=== PATIENT | male | born 1950 | race Caucasian/White ===

== ENCOUNTER → 2024-04-15 | Outpatient (BNVA) | payer MEDICARE, MEDICAID, SELFPAY | END | disposition home or self-care (01) | PROVIDERS: PCP Physician Assistant; Referring Provider Physician Assistant; Visit Provider Urology | DX: N40.1 Benign prostatic hyperplasia with lower urinary tract symptoms (principal); N13.8 Other obstructive and reflux uropathy; R33.8 Other retention of urine; R97.20 Elevated prostate specific antigen [PSA]; I10 Essential (primary) hypertension; N40.2 Nodular prostate without lower urinary tract symptoms; Z87.891 Personal history of nicotine dependence | CPT/HCPCS: 99212; G0463 ==

== ENCOUNTER → 2024-04-19 | Outpatient (BNVA) | payer MEDICARE, MEDICAID, SELFPAY | END | disposition home or self-care (01) | PROVIDERS: PCP Physician Assistant; Referring Provider Physician Assistant; Visit Provider Urology | DX: N40.1 Benign prostatic hyperplasia with lower urinary tract symptoms (principal); N13.8 Other obstructive and reflux uropathy; R97.20 Elevated prostate specific antigen [PSA]; I10 Essential (primary) hypertension; Z46.6 Encounter for fitting and adjustment of urinary device; Z87.891 Personal history of nicotine dependence | CPT/HCPCS: 99212; G0463 ==

== ENCOUNTER 2024-04-30 09:35 | Emergency (ER) | payer MEDICARE, MEDICAID, SELFPAY ==
[2024-04-30 10:38] VITALS: BP 161/92; PULSE 63; RESP 16; TEMP 37.1; O2SAT 98; BMI 19.4
--- NOTE | 2024-04-30 11:02 | EDNOTE_ITS ---
ED Male Genitalurinary RME/HPI General Chief complaint: Urogenital-Male Stated complaint: FREQUENT URINATION Time Seen by Provider: 04/30/24 10:04 Arrival date/time: 04/30/24 09:35 Limitations: no limitations RME / HPI RME / HPI Narrative: 73 year old male with history of hypertension, hypothyroidism, BPH presents to the ED for frequent urination beginning 5 days ago. Today he is requesting a guerrero catheter. Mentioned patient does have an upcoming appointment with urology. While in the ED has no other complaints. Denies fevers, chills, sweats, abdominal pain, n/v, dysuria, or hematuria. Related Data Home Medications ?Medication ?Instructions ?Recorded ?Confirmed levofloxacin 500 mg tablet 500 mg PO QDAY 04/15/24 04/19/24 losartan 100 mg tablet 100 mg PO QDAY 04/15/24 04/19/24 Previous Rx's ?Medication ?Instructions ?Recorded tamsulosin 0.4 mg capsule (Flomax) 0.4 mg PO QDAY #30 caps 03/25/24 Allergies Allergy/AdvReac Type Severity Reaction Status Date / Time No Known Allergies Allergy Verified 04/30/24 09:37 Review of Systems Review of Systems Systems Reviewed: All systems reviewed, normal except as documented Past Medical History Past Medical History CARDIAC: Negative Congestive Heart Failure RESPIRATORY: Negative Chronic Obstructive Pulmonary Disease (COPD) GENITOURINARY: Negative Renal Disease ENDOCRINE: Negative Diabetes Mellitus Type 1 or Diabetes Mellitus Type 2 Social History SMOKING STATUS: Never smoker ED Exam General Limitations: Present no limitations General appearance: Present alert and in no apparent distress Head Head exam: Present atraumatic, normocephalic and normal inspection Eye Eye exam: Present normal appearance, PERRL and EOMI ENT ENT exam: Present normal exam, normal oropharynx and mucous membranes moist Neck Neck exam: Present normal inspection, full ROM and trachea midline Chest Chest inspection: Present normal inspection and symmetric chest wall rise Respiratory Respiratory exam: Present normal lung sounds bilaterally Cardiovascular Cardiovascular exam: Present regular rate, normal rhythm and normal heart sounds Abdominal Exam Abdominal exam: Present soft and normal bowel sounds Extremities Exam Extremities exam: Present normal inspection and full ROM Back Exam Back exam: Present normal inspection and full ROM Neurological Exam Neurological exam: Present alert, oriented X3 and CN II-XII intact Psychiatric Psychiatric exam: Present normal affect and normal mood Skin Skin exam: Present warm, dry, intact and normal color Course Quality Measures none Orders Category Date Time Status Guerrero to Leg Bag Routine Care 04/30/24 11:31 Ordered UA, C/S IF [Urinalysis, C/S if Indicated] Stat Lab 04/30/24 11:30 Completed Reevaluation(s) Reevaluation #1: Patient remains clinically stable throughout the emergency department visit. We reviewed all the results, analysis, and treatment plans. Patient is amenable to discharge. Strict return precautions were outlined. Patient was discharged in stable condition. Time: 12:45 Vital Signs Vital signs: Vital Signs Temperature 98.7 F 04/30/24 10:38 Pulse Rate 63 04/30/24 10:38 Respiratory Rate 16 04/30/24 10:38 Blood Pressure 161/92 H 04/30/24 10:38 Pulse Oximetry (%) 98 04/30/24 10:38 Oxygen Delivery Method Room Air 04/30/24 10:38 Pulse ox is 98% on room air which is adequate. Procedures -ED Catheter Insertion (Urinary) Prophylactic Antibiotics Given: No Estimated amount of urine (mL): 150 Preparation: Povidone-Iodine Type of Catheter Inserted: Guerrero Catheter [place] Size: 16 Catheter balloon size (mL): 10 Topical Anesthesia Used: No Results: successfully catheterized-immediate flow Patient Tolerated Procedure: well and no complications Complications: none Urogenital - Male MDM Narrative MDM Narrative:: Jenelle Alarcon am scribing for and in the presence of Dr. Villagomez. Patient data External records reviewed:: [facility] previous records (I reviewed outpatient uro visit from 04/19/2024) Clinical information provided by:: patient Social determinants that could affect healthcare access:: none Patient has the following chronic illnesses:: hypertension, hypothyroidism, BPH How is presenting disease/condition affected by chronic disease/condition?: exacerbated by Evaluation data The following diagnostics were reviewed and interpreted by me:: lab results Lab and/or radiology exams considered but not ordered:: None Interpretation Summary: UA is unremarkable. Medications / Prescriptions Medications or Prescriptions considered but not ordered:: None Medication administrations:: None Consultations Consultation(s) initiated? (list below): No Diagnosis Urogenital Male Differential Diagnosis: urinary tract infection, prostatitis, acute retention of urine and other (BPH) Most likely diagnosis given after review of the tests above:: BPH Admission Indicated Admission indicated?: not indicated Admission Request Was there a request for admission?: No Disposition Plan Disposition Plan: Discharge Discharge Attestation Discharge Attestation: The patient and all family members were given an opportunity to ask questions a nd understood the discharge instructions. Discharge instructions specifically effects, indications for sooner follow up or return to the emergency department, and the expected course of current diagnosis. Patient condition: Stable Discharge Plan Plan Patient Disposition: HOME (Self Care) Patient condition on transfer: Stable Prescriptions/Referrals Prescriptions/Med Rec: No Action losartan 100 mg tablet 100 mg PO QDAY levofloxacin 500 mg tablet 500 mg PO QDAY tamsulosin [Flomax] 0.4 mg capsule 0.4 mg PO QDAY Qty: 30 0RF Referrals: Cole Light [Primary Care Provider] - In 1 week Problem List Clinical Impression: Benign prostatic hyperplasia (BPH) with straining on urination Patient/Caregiver Discharge Instructions Education Materials: ED BPH (Enlarged Prostate) Print Language: Gu[place]an Stand Alone Forms: [employer] Award Info., Patient Portal Info Letter
[2024-04-30 11:57] VITALS: BP 166/77; PULSE 57; RESP 16; TEMP 36.7; O2SAT 96
[2024-04-30 12:13] LABS: Collection Type, Urine Catheter; Squamous Epithelial Cell,Urine 0 /hpf (0-5)
[2024-04-30 12:19] LABS: Bilirubin,Urine Negative (Negative); Blood,Urine Negative (Negative); Clarity,Urine Clear (Clear/Hazy); Color,Urine Lt-Yellow (Lt Yel-Yel); Culture Indicated,Urine Not Indicated; Glucose, Urine Negative (Negative); Ketones,Urine Negative (Negative); Leukocyte Esterase,Urine Negative (Negative); Nitrite,Urine Negative (Negative); PH,Urine 7.5 (5.0-7.0); Protein,Urine Negative (Neg - Trace); RBC,Urine < 1 /hpf (0-3); Specific Gravity,Urine 1.013 (1.001-1.035); Urobilinogen,Urine Negative mg/dL (0.0-1.0); WBC,Urine < 1 /hpf (0-5)
== END 2024-04-30 13:34 | disposition home or self-care (01) ==
PROVIDERS: Emergency Provider Emergency Medicine; PCP Physician Assistant
DX: N40.1 Benign prostatic hyperplasia with lower urinary tract symptoms (principal); R39.16 Straining to void
CPT/HCPCS: 51702; 81001; 99283

== ENCOUNTER → 2024-06-14 | Outpatient (BNVA) | payer MEDICARE, MEDICAID, SELFPAY | END | disposition home or self-care (01) | PROVIDERS: PCP Physician Assistant; Referring Provider Physician Assistant; Visit Provider Urology | DX: N40.1 Benign prostatic hyperplasia with lower urinary tract symptoms (principal); N13.8 Other obstructive and reflux uropathy; R97.20 Elevated prostate specific antigen [PSA]; I10 Essential (primary) hypertension | CPT/HCPCS: 81003; 99213; G0463 ==

== ENCOUNTER → 2024-06-15 | Outpatient (CLI) | payer MEDICARE, MEDICAID, SELFPAY | END | disposition home or self-care (01) | PROVIDERS: Referring Provider Urology; Visit Provider Urology | DX: N39.0 Urinary tract infection, site not specified (principal) | CPT/HCPCS: 87077; 87086; 87186 ==

== ENCOUNTER → 2024-07-22 | Outpatient (BNVA) | payer MEDICARE, MEDICAID, SELFPAY | END | disposition home or self-care (01) | PROVIDERS: PCP Physician Assistant; Referring Provider Physician Assistant; Visit Provider Urology | DX: N40.1 Benign prostatic hyperplasia with lower urinary tract symptoms (principal); R39.12 Poor urinary stream | CPT/HCPCS: 51741; 51798 ==

== ENCOUNTER → 2024-08-16 | Outpatient (BNVA) | payer MEDICARE, MEDICAID, SELFPAY | END | disposition home or self-care (01) | PROVIDERS: PCP Physician Assistant; Referring Provider Physician Assistant; Visit Provider Urology | DX: N40.1 Benign prostatic hyperplasia with lower urinary tract symptoms (principal); N13.8 Other obstructive and reflux uropathy; R97.20 Elevated prostate specific antigen [PSA]; I10 Essential (primary) hypertension | CPT/HCPCS: 81003; 99213; G0463 ==

== ENCOUNTER → 2024-09-23 | Outpatient (BNVA) | payer MEDICARE, MEDICAID, SELFPAY | END | disposition home or self-care (01) | PROVIDERS: PCP Physician Assistant; Referring Provider Physician Assistant; Visit Provider Urology | DX: N40.1 Benign prostatic hyperplasia with lower urinary tract symptoms (principal); R39.12 Poor urinary stream | CPT/HCPCS: 51741; 51798 ==

== ENCOUNTER → 2024-10-05 | Outpatient (BNVA) | payer MEDICARE, MEDICAID, SELFPAY | END | disposition home or self-care (01) | PROVIDERS: PCP Physician Assistant; Referring Provider Physician Assistant; Visit Provider Urology | DX: N42.89 Other specified disorders of prostate (principal); N40.1 Benign prostatic hyperplasia with lower urinary tract symptoms; N13.8 Other obstructive and reflux uropathy | CPT/HCPCS: 55700; 76942; 81003; 96372; A4649; J1580; J3490; A9270 ==

== ENCOUNTER → 2025-03-28 | Outpatient (BNVA) | payer MEDICARE, MEDICAID, SELFPAY | END | disposition home or self-care (01) | PROVIDERS: PCP Physician Assistant; Referring Provider Physician Assistant; Visit Provider Physician Assistant | DX: N40.1 Benign prostatic hyperplasia with lower urinary tract symptoms (principal); R97.20 Elevated prostate specific antigen [PSA] | CPT/HCPCS: Q3014 ==